=== PATIENT | male | born 1940 | race Hispanic/Latino ===

== ENCOUNTER 2023-01-05 21:45 | Observation (INO) | payer MEDICARE ==
[~2023-01-05] VITALS: Ht 165.1 cm; Wt 68.1 kg
[2023-01-05 22:02] VITALS: BP 105/66
--- NOTE | 2023-01-05 22:05 | ER.PDOC ---
General Chief Complaint: Requesting Medical Care Stated Complaint: Chest pain Time seen by MD: 21:55 Exam Limitations: clinical condition History of Present Illness Initial Comments 82-year-old male that is brought to the emergency room by EMS for chest pain/PVCs. Patient is demented. 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 In route the paramedics gave him aspirin and sublingual nitro. At this time patient has no complaints Activities at Onset: none Nitro Today/Relief: 0.4 mg x 1 Aspirin Today: 325 mg x 1 Constitutional: other Physical Exam General Appearance: No Apparent Distress, WD/WN HEENT: PERRL/EOMI, Normal ENT Inspection, Pharynx Normal Neck: Non-Tender, Full Range of Motion, Supple, Normal Inspection Respiratory: chest non-tender, lungs clear, normal breath sounds, no respiratory distress, no accessory muscle use Cardiovascular: Normal Peripheral Pulses, Regular Rate, Rhythm, No Edema, No Gallop, No JVD, No Murmur Extremities: Normal Range of Motion, Non-Tender, Normal Inspection, No Pedal Edema, No Calf Tenderness, Normal Capillary Refill Neurologic/Psychiatric: nail expert II-XII NML as Tested, No Motor/Sensory Deficits, Alert, Normal Mood/Affect, Oriented x 3 Skin: Normal Color, Warm/Dry Lymphatic: No Adenopathy Results/Orders Results/Orders Orders - SHERLYN GUERRERO MD EKG (01/05/23 22:11) Xr Chest 1v (01/05/23 22:11) Cbc With Auto Diff (01/05/23 22:11) Comprehensive Metabolic Panel (01/05/23 22:11) Creatine Kinase (01/05/23 22:11) Creatine Kinase Mb (01/05/23 22:11) Probnp B-Type Hotel Operation Manager (01/05/23 22:11) D-Dimer (01/05/23 22:11) Troponin I High Sensitivity (01/05/23 22:11) Thyroid Stimulating Horm(Ml) (01/05/23 22:13) Cta Chest (01/05/23 23:31) Vital Signs Date Time Temp Pulse Resp B/P (MAP) Pulse Ox O2 Delivery O2 Flow Rate FiO2 01/05/23 22:02 97.9 80 16 105/66 (79) 96 Room Air* 0 21 01/05/23 22:02 97.9 80 16 96 Administered Medications Medications (Trade) Dose Ordered Sig/Pierre Route PRN Reason Start Time Stop Time Status Last Admin Dose Admin Enoxaparin Sodium (Lovenox) 40 mg Q24HRS SQ 01/06/23 00:00 02/05/23 00:00 UNV 01/06/23 00:15 40 MG Laboratory Tests Test 01/05/23 21:56 01/05/23 22:13 White Blood Count 10.3 10^3/uL (4.5-11.0) Red Blood Count 4.68 10^6/uL (4.50-5.90) Hemoglobin 13.5 g/dL (13.9-16.3) L Hematocrit 39.9 % (37.0-53.0) Mean Corpuscular Volume 85.3 fL (78-100) Mean Corpuscular Hemoglobin 28.8 pg (26-34) Mean Corpuscular Hemoglobin Concent 33.8 g/dL (33-36.5) Red Cell Distribution Width 14.2 % (11.5-14.5) Platelet Count 234 10^3/uL (150-400) Mean Platelet Volume 9.9 fL (7.8-11.0) Neutrophils (%) (Auto) 44.7 % (41.0-85.0) Lymphocytes (%) (Auto) 44.5 % (24.0-44.0) H Monocytes (%) (Auto) 9.0 % (5.0-12.0) Neutrophils # (Auto) 4.6 10^3/uL (1.8-7.7) Lymphocytes # (Auto) 4.60 10^3/uL1 (1.0-4.8) Monocytes # (Auto) 0.9 10^3/uL (0.3-0.8) H Absolute Immature Granulocyte (auto 0.01 10^3 u/L (0-2) Absolute Eosinophils (auto) 0.2 10^3/uL (0.0-0.2) Immature Granulocytes % 0.10 % (0.00-0.50) Eosinophils % 1.5 % (0.0-5.0) Basophils % 0.2 % (0.0-0.2) Basophils # 0.0 10^3/uL (0.0-0.1) D-Dimer 0.73 mg/L (0.19-0.49) *H Sodium Level 138 mmol/L (132-145) Potassium Level 3.9 mmol/L (3.6-5.2) Chloride Level 103.0 mmol/L (96-109) Carbon Dioxide Level 25.2 mmol/L (20.0-32) Anion Gap 13.7 Blood Urea Nitrogen 16 mg/dL (7-18) Creatinine 1.07 mg/dL (0.59-1.40) Estimated GFR () 80.1 (>/=60) Est GFR (CKD-EPI)(Non-Afr Kosovan) 66.2 (>/=60) BUN/Creatinine Ratio 14.0 (10.0-20.0) Glucose Level 247 mg/dL (70-110) H Calcium Level 9.2 mg/dL (8.4-10.5) Total Bilirubin 0.8 mg/dL (0.2-1.0) Aspartate Amino Transferase (AST) 11 U/L (0-35) Alanine Aminotransferase (ALT) 20 U/L (12-78) Alkaline Phosphatase 104 U/L (50-136) Total Creatine Kinase 32 U/L (39-308) L Creatine Kinase MB < 0.5 ng/mL (0.5-3.6) L Troponin I High Sensitivity 5 ng/L (0-75) Pro-B-Type Natriuretic Peptide 182 pg/mL (0-450) Total Protein 7.5 g/dL (6.4-8.2) Albumin 3.2 g/dL (3.4-5.0) L Globulin 4.3 Albumin/Globulin Ratio 0.744 Thyroid Stimulating Hormone (TSH) 2.108 mIU/mL (0.358-3.740) Progress Progress ddx: mi, arrythmia, pe, electrolyte imbal, acs will do a complete cardiac work up including blood, ekg, and cxr EKG/XRAY/CT/US EKG: NSR (freq pvc, my interp: abnl, pvc) XRAY Comments: reprt is neg Consult/PCP Consult/PCP: d/w Dr. Ahumada Reason/Comments: admits to tele obs,. pt but wants cta chest before sending to the [facility] Departure ER DEPART Departure Time of Disposition: 23:48 Disposition: 02 SHORT TERM HOSPITAL Impression: Primary Impression: Chest pain Additional Impression: PVCs (premature ventricular contractions) Condition: Stable Referrals: ARMIDA VELAZCO MD (PCP) PRIMARY CARE PROVIDER Duration or Time Spent with Pa: 30 Critical Care Note ER DEPART Departure Time of Disposition: 23:30 Disposition: 02 SHORT TERM HOSPITAL Impression: Primary Impression: Chest pain Additional Impression: PVC (premature ventricular contraction) Condition: Stable Duration or Time Spent with Pa: 45 Problem Qualifiers Primary Impression: Chest pain Chest pain type: chest pain due to myocardial ischemia Ischemic chest pain type: unstable angina pectoris Qualified Codes: I20.0 - Unstable angina SHERLYN GUERRERO MD Jan 05, 2023 22:05
--- NOTE | 2023-01-05 22:14 | PCM.EKG ---
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
[2023-01-05 22:17] LABS: BASOPHIL % 0.2 % (0.0-0.2); EOSINOPHIL # 0.2 10^3/uL (0.0-0.2); EOSINOPHIL % 1.5 % (0.0-5.0); LYMPHOCYTES % 44.5 % (24.0-44.0); MEAN CORP HGB 28.8 pg (26-34); MONOCYTES # 0.9 10^3/uL (0.3-0.8); NEUTROPHIL # 4.6 10^3/uL (1.8-7.7); NEUTROPHILS % 44.7 % (41.0-85.0); PLATELET COUNT 234 10^3/uL (150-400); RED CELL DISTRIBUTION WIDTH 14.2 % (11.5-14.5)
[2023-01-05 22:41] LABS: CARBON DIOXIDE 25.2 mmol/L (20.0-32); GLUCOSE 247 mg/dL (70-110)
--- NOTE | 2023-01-05 23:20 | DIREP ---
PROCEDURE:CHEST 1 VIEW COMPARISON:[facility], CR, XRAY CHEST SINGLE VW, 11/13/2022, 00:21 AM. INDICATIONS:arrythmia, pvc FINDINGS: LUNGS/PLEURA:No significant pulmonary parenchymal abnormalities. No effusions. No pneumothorax. VASCULATURE:Normal. Unremarkable pulmonary vasculature. CARDIAC:Cardiac valve replacement. A dual lead cardiac pacer is in stable position. MEDIASTINUM:Surgical changes of median sternotomy. There is atherosclerosis of the aortic arch. BONES:Normal. No fracture or visible bony lesion. OTHER:Negative. CONCLUSION:No acute cardiopulmonary abnormality. Dictated by: Vincent Broderick M.D. on 01/05/2023 at 11:18 PM
--- NOTE | 2023-01-05 23:42 | PRM.CONS ---
Consultation Reason for Consult: Reason for Consultation: CHest pain, confusion History of Present Illness History of Patient Comments This is a telemedicine visit Patient's current location: [place], [place] My current location [place], [place] Assistants: Emergency room physician Emergency room nursing staff Bedside nursing staff Technology: [employer] teams Patient is unable to fully consent due to confusion and severe dementia at baseline Social Determinants of Health and Impact on Medical Decision-Making : Patient with severe dementia at baseline with limited history ability Consideration of Tests - The indication and diagnostic value of the following test was considered and deemed to be acutely necessary to impact patient care management at this time: CT angio of the chest Consideration of Hospitalization - The necessity, risks and benefits of hospitalization were considered along with the intensity of treatment necessary to match the current severity of illness. After shared decision-making, it has been determined that patient is an appropriate candidate for: Hospitalization Total time spent on the day of admission: 75-minute Vitals & Lab Laboratory Tests Test 01/05/23 21:56 01/05/23 22:13 01/06/23 01:02 01/06/23 03:00 White Blood Count 10.3 10^3/uL Red Blood Count 4.68 10^6/uL Hemoglobin 13.5 g/dL Hematocrit 39.9 % Mean Corpuscular Volume 85.3 fL Mean Corpuscular Hemoglobin 28.8 pg Mean Corpuscular Hemoglobin Concent 33.8 g/dL Red Cell Distribution Width 14.2 % Platelet Count 234 10^3/uL Mean Platelet Volume 9.9 fL Neutrophils (%) (Auto) 44.7 % Lymphocytes (%) (Auto) 44.5 % Monocytes (%) (Auto) 9.0 % Neutrophils # (Auto) 4.6 10^3/uL Lymphocytes # (Auto) 4.60 10^3/uL1 Monocytes # (Auto) 0.9 10^3/uL Absolute Immature Granulocyte (auto 0.01 10^3 u/L Absolute Eosinophils (auto) 0.2 10^3/uL Immature Granulocytes % 0.10 % Eosinophils % 1.5 % Basophils % 0.2 % Basophils # 0.0 10^3/uL D-Dimer 0.73 mg/L Sodium Level 138 mmol/L Potassium Level 3.9 mmol/L Chloride Level 103.0 mmol/L Carbon Dioxide Level 25.2 mmol/L Anion Gap 13.7 Blood Urea Nitrogen 16 mg/dL Creatinine 1.07 mg/dL Estimated GFR () 80.1 Est GFR (CKD-EPI)(Non-Afr Cameroonian) 66.2 BUN/Creatinine Ratio 14.0 Glucose Level 247 mg/dL Calcium Level 9.2 mg/dL Total Bilirubin 0.8 mg/dL Aspartate Amino Transf (AST/SGOT) 11 U/L Alanine Aminotransferase (ALT/SGPT) 20 U/L Alkaline Phosphatase 104 U/L Total Creatine Kinase 32 U/L Creatine Kinase MB < 0.5 ng/mL Troponin I High Sensitivity 5 ng/L < 4 ng/L 5 ng/L Pro-B-Type Natriuretic Peptide 182 pg/mL Total Protein 7.5 g/dL Albumin 3.2 g/dL Globulin 4.3 Albumin/Globulin Ratio 0.744 Thyroid Stimulating Hormone (TSH) 2.108 mIU/mL Current Medications Medications (Trade) Dose Ordered Sig/Pierre Route PRN Reason Start Time Stop Time Status Last Admin Dose Admin Acetaminophen (Tylenol) 650 mg Q6H PRN PO Temp >100.4 01/06/23 00:00 02/05/23 00:00 UNV Acetaminophen (Tylenol) 650 mg Q6H PRN PO PAIN 1 - 3 01/06/23 00:00 02/05/23 00:00 UNV Simethicone (Genasyme) 80 mg BID PRN PO gas 01/06/23 00:00 02/05/23 00:00 UNV Temazepam (Restoril) 15 mg HS PRN PO INSOMNIA 01/06/23 00:00 02/05/23 00:00 UNV Magnesium Hydroxide (Milk Of Magnesia) 2,400 mg OT PRN PO CONSTIPATION 01/06/23 00:00 02/05/23 00:00 UNV Aspirin (Aspirin Ec) 81 mg DAILY PO 01/06/23 09:00 02/05/23 08:59 UNV Acetaminophen (Tylenol) 1,000 mg Q4H PRN PO PAIN 1 - 3 01/06/23 00:00 02/05/23 00:00 UNV Zolpidem Tartrate (Ambien) 5 mg HS PRN PO INSOMNIA 01/06/23 00:00 02/05/23 00:00 UNV Morphine Sulfate (Morphine Sulfate) 2 mg Q4H PRN IV PAIN 4 - 6 01/06/23 00:00 02/05/23 00:00 UNV Nitroglycerin (Nitrostat) 0.4 mg PRN PRN SL CHEST PAIN 01/06/23 00:00 02/05/23 00:00 UNV Ondansetron HCl (Zofran) 4 mg Q4H PRN IV NAUSEA / VOMITING 01/06/23 00:00 02/05/23 00:00 UNV Atorvastatin Calcium (Lipitor) 40 mg HS PO 01/06/23 21:00 02/05/23 20:59 UNV Enoxaparin Sodium (Lovenox) 40 mg Q24HRS SQ 01/06/23 00:00 02/05/23 00:00 UNV 01/06/23 00:15 Vital Sign - Last 24 Hours 01/05/23 01/05/23 01/06/23 01/06/23 22:02 22:02 00:18 01:43 Temp 97.9 97.9 97.9 Pulse 80 80 73 71 Resp 16 16 16 B/P (MAP) 105/66 (79) 149/77 (101) Pulse Ox 96 96 96 O2 Delivery Room Air* Room Air* Room Air O2 Flow Rate 0 0 0.00 FiO2 21 21 01/06/23 01/06/23 01/06/23 01/06/23 02:07 02:30 03:55 04:52 Temp 97.2 97.2 Pulse 75 76 Resp 18 18 B/P (MAP) 168/90 (116) 112/58 (76) Pulse Ox 100 93 O2 Delivery Room Air Room Air* Room Air Room Air* O2 Flow Rate 0.00 0 0.00 0 FiO2 21 21 Intake and Output 01/06/23 07:00 Output Total 400 ml Balance -400 ml VTE VTE Risk Score VTE Risk: Score 0-1 = Low Risk (Aggressive mobilization; early ambulation; no VTE prophylaxis required) Score 2: Moderate Risk (Intermittent/Pneumatic Compression Device OR Lovenox/Heparin/Coumadin) Score 3-4: High Risk (Intermittent/Pneumatic Compression Device AND Lovenox/Heparin/Coumadin) Score > or =5: Highest Risk (Intermittent/Pneumatic Compression Device AND Lovenox/Heparin/Coumadin) History of Present Illness History of Present Illness This is an 82-year-old male who is a [facility] patient who presented to the emergency room with apparent complaints of chest pain and PVCs. He was quite confused at the time of my evaluation. According emergency room provider he had very extensive previous medical knowledge and actually told him he was having some palpitations but the patient is unable to confirm this at the time of my evaluation. The patient denies overt chest pain to me however paramedics did give him aspirin and nitroglycerin. Overall he is a rather poor historian Physical Exam General Appearance: No Apparent Distress, Anxious HEENT: PERRL/EOMI, Normal ENT Inspection Cardiovascular: Other (Regularly irregular) Gastrointestinal: Normal Bowel Sounds Neurologic/Psychiatric: Alert, Other (Oriented x2) Skin: Normal Color Assessment/Plan Assessment/Plan Problems: (1) Chest pain Status: Acute Assessment & Plan: Will obtain serial cardiac labs, EKGs, place on telemetry for continuous monitoring. Starting on aspirin as well as statin therapy. Checking lipid panel in AM. Will need to discuss with Cardiology to arrange for stress test in AM. Adding prn nitro, oxygen, and morphine. Will follow up on cardiac labs and EKG, if troponin does increase will start with therapeutic lovenox at that time. ICD Code: R07.9 - Chest pain, unspecified SNOMED: 71180815 (2) Bigeminy Status: Acute Assessment & Plan: Remain on telemetry for now Checking magnesium levels Management as outlined above ICD Code: I49.8 - Other specified cardiac arrhythmias SNOMED: 80502393 (3) Hyperglycemia Status: Acute Assessment & Plan: Suspect he does have significant underlying type 2 diabetes Patient is currently little bit confused No evidence of DKA at this point Will place the patient on long acting insulin as well as premeal and insulin correction scale. HgA1C pending. DM education and DM diet. Will need terminal makeup operator follow up with PCP at the time of discharge. Close monitoring of glucose will be required at this point time. ICD Code: R73.9 - Hyperglycemia, unspecified SNOMED: 38167015 (4) Dementia Status: Chronic Assessment & Plan: Resume medications once known ICD Code: F03.90 - Unspecified dementia, unspecified severity, without behavioral disturbance, psychotic disturbance, mood disturbance, and anxiety SNOMED: 82920112 (5) PVC (premature ventricular contraction) Status: Acute Assessment & Plan: Telemetry monitoring Cardiology consultation in the morning Checking magnesium level ICD Code: I49.3 - Ventricular premature depolarization SNOMED: 624313379 Problem Qualifiers (1) Chest pain: Chest pain type: chest pain due to myocardial ischemia Ischemic chest pain type: unstable angina pectoris Qualified Codes: I20.0 - Unstable angina (2) Dementia: Dementia type: Alzheimer's Alzheimer's disease onset: late onset Dementia severity: moderate Dementia behavioral or psychological symptom: with other behavioral disturbance Qualified Codes: G30.1 - Alzheimer's disease with late onset; F02.B18 - Dementia in other diseases classified elsewhere, moderate, with other behavioral disturbance LILLIANA FRANCIS MD Jan 05, 2023 23:41
[2023-01-06] VITALS (7 sets, daily range): BP systolic 112–168; BP diastolic 58–90
[2023-01-06] MEDS ORDERED: LOVENOX SQ SCH
[2023-01-06] MEDS ORDERED: GENASYME PO PRN
[2023-01-06] MEDS ORDERED: NITROSTAT SL PRN
[2023-01-06] MEDS ORDERED: MILK OF MAGNESIA PO PRN
[2023-01-06] MEDS ORDERED: AMBIEN PO PRN
[2023-01-06] MEDS ORDERED: ZOFRAN IV PRN
[2023-01-06] MEDS ORDERED: MYLANTA PO PRN ×2
[2023-01-06] MEDS ORDERED: TYLENOL PO PRN ×3
[2023-01-06] MEDS ORDERED: MORPHINE SULFATE IV PRN
[2023-01-06] MEDS ORDERED: RESTORIL PO PRN
--- NOTE | 2023-01-06 | NUR ---
DELAY IN TRANSPORT TO [facility] DUE TO CTA ORDERED BY EDP
--- NOTE | 2023-01-06 00:45 | DIREP ---
PROCEDURE:CTA CHEST COMPARISON:None. INDICATIONS:cp, elevated d-dimer TECHNIQUE:Post contrast axial images through the chest with multiplanar MIP/3D reconstructions. FINDINGS: PULMONARY ARTERIES:Patent. LUNGS:No significant pulmonary parenchymal abnormalities. PLEURA:Normal. CARDIAC:Replaced aortic valve and mitral valve. Cardiac pacer leads are present. The heart size is normal. No mild coronary artery atherosclerosis. RV:LV ratio (norm <0.9): Not applicable in the absence of pulmonary embolism. THORACIC AORTA:There is moderate atherosclerosis. MEDIASTINUM:Normal. THYROID:Multi nodular thyroid with a nodule in the left thyroid lobe measuring up to 2.0 cm. 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 Surgical changes of median sternotomy. 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 The superior vena cava appears patent. Cholelithiasis. CONCLUSION: 1. Negative for pulmonary embolus or acute abnormality in the chest. 2. 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 3. Multiple thyroid nodules measure up to 2.0 cm. Recommend dedicated thyroid ultrasound for further characterization. Dictated by: Vincent Broderick M.D. on 01/06/2023 at 00:38 AM
--- NOTE | 2023-01-06 01:37 | PCM.EKG ---
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
[2023-01-06] MEDS ORDERED: ESCI5TAB7 PO (01:50)
[2023-01-06] MEDS ORDERED: ASPI-667 PO (01:50)
[2023-01-06] MEDS ORDERED: LISI10TA20 PO (01:50)
[2023-01-06] MEDS ORDERED: INSU100V40 SQ (01:50)
[2023-01-06] MEDS ORDERED: PHEN1SUP80 RC (01:50)
[2023-01-06] MEDS ORDERED: CHOL125C6 PO (01:50)
[2023-01-06] MEDS ORDERED: TAMS-14 PO (01:50)
[2023-01-06] MEDS ORDERED: DOCU-123 PO (01:50)
[2023-01-06] MEDS ORDERED: ASCO500C PO (01:50)
[2023-01-06] MEDS ORDERED: LANTUS SQ STA (06:33)
[2023-01-06 06:39] LABS: CARBON DIOXIDE 24.7 mmol/L (20.0-32)
[2023-01-06] MEDS ORDERED: DEXTROSE 50%-WATER SYRINGE IV PRN (07:00)
[2023-01-06] MEDS ORDERED: ASPIRIN EC PO SCH (09:00)
[2023-01-06] MEDS: HUMULIN R SQ SCH ×2 (09:55→13:08)
[2023-01-06] MEDS ORDERED: ATOR20TA PO (12:04)
--- NOTE | 2023-01-06 12:05 | PRM.DC ---
Discharge Summary Date of Discharge: Jan 06, 2023 Time of Request to Discharge: 12:04 Hospital Course This is a pleasant 82-year-old gentleman who presented with shortness of breath and mild left upper chest pain. The patient reported that he is here to radiate from his pacemaker and describes repeatedly as atypical. He was also concerned that he felt what he thought to be bigeminy. As a consequence patient was monitored overnight with serial troponins all of which proved negative. As a consequence the patient is discharged back to his assisted living facility and will follow-up as needed with his mobile development manager in [place]. General: Alert, Oriented X3, Cooperative, No acute distress HEENT: Atraumatic, PERRLA, EOMI, Mucous membr. moist/pink Neck: Supple Lungs: Clear to auscultation, Normal air movement Heart: Regular rate, Normal S1 Abdomen: Normal bowel sounds, Soft, No tenderness Extremities: No clubbing, No cyanosis Skin: No rashes, No breakdown Neuro: Normal gait, Normal speech, Strength at 5/5 X4 ext Psych/Mental Status: Mental status NL, Mood NL Scheduled Ascorbic Acid (Vitamin C), 500 MG PO BID, (Reported) Aspirin (Aspirin), 81 MG PO DAILY24, (Reported) Atorvastatin 20MG (Lipitor 20MG), 40 MG PO HS Cholecalciferol (Vitamin D3) (D3-5000), 1 TAB PO DAILY24, (Reported) Docusate Sodium (Colace), 100 MG PO BID, (Reported) Escitalopram Oxalate (Lexapro), 15 MG PO DAILY24, (Reported) Insulin Aspart (Insulin Aspart), 0 SQ ACHS, (Reported) Lisinopril (Lisinopril), 10 MG PO DAILY24, (Reported) Tamsulosin Hcl (Flomax), 0.4 MG PO HS, (Reported) Scheduled PRN Phenylephrine HCl/[place] Butter (Hemorrhoidal Suppositories), 1 EACH RC Q6 PRN for prn, (Reported) Sepsis Evaluation @ Discharge 01/06/23 08:26 Course Sepsis Screening Results: Posi: NEGATIVE Sepsis Qualifier/Stage: NO DEFINITE RISK Duration or Total Time Spent w: 45 Vitals & review Data Vital Sign - Last 24 Hours 01/05/23 01/05/23 01/06/23 01/06/23 22:02 22:02 00:18 01:43 Temp 97.9 97.9 97.9 Pulse 80 80 73 71 Resp 16 16 16 B/P (MAP) 105/66 (79) 149/77 (101) Pulse Ox 96 96 96 O2 Delivery Room Air* Room Air* Room Air O2 Flow Rate 0 0 0.00 FiO2 21 21 01/06/23 01/06/23 01/06/23 01/06/23 02:07 02:30 03:55 04:52 Temp 97.2 97.2 Pulse 75 76 Resp 18 18 B/P (MAP) 168/90 (116) 112/58 (76) Pulse Ox 100 93 O2 Delivery Room Air Room Air* Room Air Room Air* O2 Flow Rate 0.00 0 0.00 0 FiO2 21 21 01/06/23 01/06/23 01/06/23 07:21 07:50 11:56 Temp 97.9 97.9 Pulse 66 78 Resp 17 18 B/P (MAP) 135/72 (93) 139/75 (96) Pulse Ox 92 90 O2 Delivery Room Air* Room Air Room Air* O2 Flow Rate 0 0.00 0 FiO2 21 21 Intake and Output 01/06/23 07:00 Output Total 400 ml Balance -400 ml Laboratory Tests Test 01/05/23 21:56 01/05/23 22:13 01/06/23 01:02 01/06/23 03:00 White Blood Count 10.3 10^3/uL Red Blood Count 4.68 10^6/uL Hemoglobin 13.5 g/dL Hematocrit 39.9 % Mean Corpuscular Volume 85.3 fL Mean Corpuscular Hemoglobin 28.8 pg Mean Corpuscular Hemoglobin Concent 33.8 g/dL Red Cell Distribution Width 14.2 % Platelet Count 234 10^3/uL Mean Platelet Volume 9.9 fL Neutrophils (%) (Auto) 44.7 % Lymphocytes (%) (Auto) 44.5 % Monocytes (%) (Auto) 9.0 % Neutrophils # (Auto) 4.6 10^3/uL Lymphocytes # (Auto) 4.60 10^3/uL1 Monocytes # (Auto) 0.9 10^3/uL Absolute Immature Granulocyte (auto 0.01 10^3 u/L Absolute Eosinophils (auto) 0.2 10^3/uL Immature Granulocytes % 0.10 % Eosinophils % 1.5 % Basophils % 0.2 % Basophils # 0.0 10^3/uL D-Dimer 0.73 mg/L Sodium Level 138 mmol/L Potassium Level 3.9 mmol/L Chloride Level 103.0 mmol/L Carbon Dioxide Level 25.2 mmol/L Anion Gap 13.7 Blood Urea Nitrogen 16 mg/dL Creatinine 1.07 mg/dL Estimated GFR () 80.1 Est GFR (CKD-EPI)(Non-Afr Niuean) 66.2 BUN/Creatinine Ratio 14.0 Glucose Level 247 mg/dL Calcium Level 9.2 mg/dL Total Bilirubin 0.8 mg/dL Aspartate Amino Transf (AST/SGOT) 11 U/L Alanine Aminotransferase (ALT/SGPT) 20 U/L Alkaline Phosphatase 104 U/L Total Creatine Kinase 32 U/L Creatine Kinase MB < 0.5 ng/mL Troponin I High Sensitivity 5 ng/L < 4 ng/L 5 ng/L Pro-B-Type Natriuretic Peptide 182 pg/mL Total Protein 7.5 g/dL Albumin 3.2 g/dL Globulin 4.3 Albumin/Globulin Ratio 0.744 Thyroid Stimulating Hormone (TSH) 2.108 mIU/mL Test 01/06/23 06:05 01/06/23 11:45 Sodium Level 139 mmol/L Potassium Level 3.5 mmol/L Chloride Level 103.0 mmol/L Carbon Dioxide Level 24.7 mmol/L Glucose Level 180 mg/dL Blood Urea Nitrogen 12 mg/dL Creatinine 0.86 mg/dL Calcium Level 9.3 mg/dL Anion Gap 14.8 Estimated GFR () 103.0 Est GFR (CKD-EPI)(Non-Afr Niuean) 85.1 BUN/Creatinine Ratio 13.0 Magnesium Level 1.8 mg/dL Triglycerides Level 106 mg/dL Cholesterol Level 154 mg/dL LDL Cholesterol, Calculated 94.8 VLDL Cholesterol, Calculated 21.2 HDL Cholesterol 38 mg/dL Cholesterol Ratio (LDL/HDL) 2.4 Cholesterol/HDL Ratio [id number] Bedside Glucose 236 Current Medications Medications (Trade) Dose Ordered Sig/Pierre PRN Reason Start Time Stop Time Status Last Admin Acetaminophen (Tylenol) 650 mg Q6H PRN PAIN 1 - 3 01/06/23 00:00 02/05/23 00:00 Acetaminophen (Tylenol) 650 mg Q6H PRN Temp >100.4 01/06/23 00:00 02/05/23 00:00 Aspirin (Aspirin Ec) 81 mg DAILY 01/06/23 09:00 02/05/23 08:59 01/06/23 09:54 Atorvastatin Calcium (Lipitor) 40 mg HS 01/06/23 21:00 02/05/23 20:59 Dextrose (Dextrose 50%-Water Syringe) 25 ml STAT PRN HYPOGLYCEMIA 01/06/23 07:00 02/05/23 06:59 Enoxaparin Sodium (Lovenox) 40 mg Q24HRS 01/06/23 00:00 02/05/23 00:00 01/06/23 00:15 Insulin Glargine (Lantus) 20 unit HS 01/06/23 21:00 02/05/23 20:59 Insulin Human Regular (Humulin R) Give 30 minutes before meal ACHS 01/06/23 07:30 02/05/23 07:29 01/06/23 09:55 Morphine Sulfate (Morphine Sulfate) 2 mg Q4H PRN PAIN 4 - 6 01/06/23 00:00 02/05/23 00:00 Nitroglycerin (Nitrostat) 0.4 mg PRN PRN CHEST PAIN 01/06/23 00:00 02/05/23 00:00 Ondansetron HCl (Zofran) 4 mg Q4H PRN NAUSEA / VOMITING 01/06/23 00:00 02/05/23 00:00 Simethicone (Genasyme) 80 mg BID PRN gas 01/06/23 00:00 02/05/23 00:00 Temazepam (Restoril) 15 mg HS PRN INSOMNIA 01/06/23 00:00 02/05/23 00:00 Zolpidem Tartrate (Ambien) 5 mg HS PRN INSOMNIA 01/06/23 00:00 02/05/23 00:00 LEVEL 1 SEPSIS INFECTION CRITE: None/Not assessed O2 Sat by Pulse Oximetry: 90 Oxygen Flow Rate: 0.00 PASCUAL ROBINS MD Jan 06, 2023 12:05
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
--- NOTE | 2023-01-06 17:08 | NUR ---
DISCHARGE REPORT CALLED INTO [facility], YAZAN MASSEY. NEW MEDICATIONS REVIEWED WITH [facility]. IV DC'D, TIP INTACT. PT LEFT UNIT VIA WHEELCHAIR X 1 [facility] STAFF TO MEDICAL [facility]AN WITH WHEELCHAIR.
[2023-01-06] MEDS ORDERED: LANTUS SQ SCH (21:00)
[2023-01-06] MEDS ORDERED: LIPITOR PO SCH (21:00)
--- NOTE | 2023-01-07 09:22 | PCM.EKG ---
[facility] Test Date: 2023-01-06 Pat Name: DARIELA VEGA Department: [place] Room: 341 A Gender: M Order Worker: : [id number] Requested By: LILLIANA FRANCIS Order Number: [id number] Reading MD: Measurements Intervals Nova Rate: 70 P: 11 PA: 161 QRS: -8 QRSD: 99 T: 34 QT: 441 QTc: 476 Interpretive Statements Sinus rhythm Borderline T wave abnormalities Borderline prolonged QT interval Compared to ECG 01/06/2023 01:30:41 Ventricular premature complex(es) no longer present T-wave abnormality still present Please click the below link to view image of tracing.
== END 2023-01-06 17:08 ==
LOC: ER 21:45 → EDBD 21:45 → MS 01-06 00:10
PROVIDERS: ADMIT Internal Medicine; ATTEND Internal Medicine
DX: R07.89 Other chest pain (principal); R00.8 Other abnormalities of heart beat; I49.3 Ventricular premature depolarization; R73.9 Hyperglycemia, unspecified; F03.90 Unspecified dementia, unspecified severity, without behavioral disturbance, psychotic disturbance, mood disturbance, and anxiety; Z79.82 Long term (current) use of aspirin; Z79.899 Other long term (current) drug therapy; Z95.0 Presence of cardiac pacemaker
CPT/HCPCS: 71045; 71275; 80053; 85025; 36415 ×2; 85379; 84484 ×2; 82553; 83880; 82550; 84443; 93005 ×2; 96372; 99285; 82948; 80048; 80061; 83735; Q9965; G0378 ×2; J1815; J1650